=== PATIENT | male | born 1940 | race Caucasian/White ===

== ENCOUNTER 2022-04-05 07:43 | Emergency (ER) | payer MEDICARE ==
[2022-04-05] MEDS ORDERED: Ibuprofen 600 MG TAB ONE (08:20)
[2022-04-05 08:35] LABS: #Basophils 0.1 thou/uL (0.0-0.2); #Eosinphils 0.2 thou/uL (0.0-0.7); #Lymphocytes 1.4 thou/uL (1.20-3.40); #Neutrophils 7.6 thou/uL (1.40-6.50); %Basophils 0.9 % (0.0-1.0); %Eosinophils 1.7 % (0.0-10.0); %Lymphocytes 13.6 % (21.0-51.0); %Monocytes 9.5 % (0.0-10.0); %Neutrophils 74.3 % (42.0-75.0); Hemoglobin 12.9 g/dL (14.0-18.0); Mean Corpuscular HGB CONC 32.9 g/dL (32.0-36.0); Mean Corpuscular Hemoglobin 31.5 pg (27.0-31.0); Mean Corpuscular Volume 95.9 fl (78.0-98.0); Mean Platelet Volume 6.9 fL (7.4-10.4); Platelet Count 240 10x3/uL (130-400); RBC Distribution Width 11.8 % (11.5-14.5); Red Blood Cell (RBC) Count 4.11 mill/uL (4.70-6.10); White Blood Cell (WBC) Count 10.3 10x3/uL (4.8-10.8)
[2022-04-05 08:51] LABS: Anion Gap 15 mmol/L (10-20); BUN (Urea Nitrogen) 16 mg/dL (8.4-25.7); CRP (Inflammatory) 1.48 mg/dL (= or < 0.5); Calc. Creatinine Clearance 0 mL/min (70-130); Calcium 9.2 mg/dL (7.8-10.44); Carbon Dioxide 23 mmol/L (23-31); Chloride 107 mmol/L (98-107); Estimated GFR 85; Glucose 95 mg/dL (83-110); Potassium 4.7 mmol/L (3.5-5.1); Sodium 140 mmol/L (136-145)
[2022-04-05] MEDS ORDERED: Albuterol Sulfate 2.5 mg/3 ml Neb ONE (12:39)
== END 2022-04-05 09:30 | disposition home or self-care (01) ==
LOC: MADERS 07:43
DX: S90.02XA Contusion of left ankle, initial encounter (principal); L03.116 Cellulitis of left lower limb; B35.1 Tinea unguium; I10 Essential (primary) hypertension; Z79.899 Other long term (current) drug therapy; G40.909 Epilepsy, unspecified, not intractable, without status epilepticus; X58.XXXA Exposure to other specified factors, initial encounter
CPT/HCPCS: 80048; 85025; 86140; J7611

== ENCOUNTER 2022-04-11 09:04 | Inpatient (IN) | payer MEDICARE ==
[2022-04-11] MEDS ORDERED: Sodium Chloride 0.9% 250 ML 250 ML ONE (09:53)
[2022-04-11 10:38] LABS: #Basophils 0.1 thou/uL (0.0-0.2); #Eosinphils 0.1 thou/uL (0.0-0.7); #Lymphocytes 1.9 thou/uL (1.20-3.40); #Monocytes 1.1 thou/uL (0.11-0.59); #Neutrophils 8.2 thou/uL (1.40-6.50); %Basophils 1.2 % (0.0-1.0); %Eosinophils 0.9 % (0.0-10.0); %Lymphocytes 16.4 % (21.0-51.0); %Monocytes 9.8 % (0.0-10.0); %Neutrophils 71.7 % (42.0-75.0); Hemoglobin 13.1 g/dL (14.0-18.0); Mean Corpuscular HGB CONC 32.9 g/dL (32.0-36.0); Mean Corpuscular Hemoglobin 31.1 pg (27.0-31.0); Mean Corpuscular Volume 94.5 fl (78.0-98.0); Mean Platelet Volume 7.9 fL (7.4-10.4); Platelet Count 307 10x3/uL (130-400); RBC Distribution Width 11.4 % (11.5-14.5); Red Blood Cell (RBC) Count 4.22 mill/uL (4.70-6.10); White Blood Cell (WBC) Count 11.5 10x3/uL (4.8-10.8)
[2022-04-11 10:53] LABS: Anion Gap 15 mmol/L (10-20); BUN (Urea Nitrogen) 28 mg/dL (8.4-25.7); Calc. Creatinine Clearance 0 mL/min (70-130); Calcium 9.3 mg/dL (7.8-10.44); Carbon Dioxide 22 mmol/L (23-31); Chloride 105 mmol/L (98-107); Estimated GFR 63; Glucose 87 mg/dL (83-110); Sodium 138 mmol/L (136-145)
[2022-04-11] MEDS ORDERED: Sodium Chloride 0.9% 1,000 ML ONE (12:08)
[2022-04-11 13:33] VITALS: BMI 21.2
[2022-04-11] MEDS ORDERED: Ondansetron PF 4 MG/2 ML Vial IVP PRN (16:15)
[2022-04-11] MEDS ORDERED: Ondansetron ODT 4 MG TAB PO PRN (16:15)
[2022-04-11] MEDS: Enoxaparin Sodium 40 MG/0.4 ML SYRINGE SC SCH (20:18)
[2022-04-11] MEDS: levETIRAcetam 500 MG TAB PO SCH (20:19)
[2022-04-12] MEDS: Acetaminophen 325 MG TAB PO PRN ×2 (00:35→14:31)
[2022-04-12 02:00] LABS: SARS-CoV-2 NAA Rapid Test Not Detected (NotDetected)
[2022-04-12 07:42] LABS: #Basophils 0.2 thou/uL (0.0-0.2); #Eosinphils 0.2 thou/uL (0.0-0.7); #Lymphocytes 1.9 thou/uL (1.20-3.40); #Neutrophils 6.7 thou/uL (1.40-6.50); %Basophils 1.9 % (0.0-1.0); %Eosinophils 1.8 % (0.0-10.0); %Lymphocytes 18.8 % (21.0-51.0); %Monocytes 9.9 % (0.0-10.0); %Neutrophils 67.6 % (42.0-75.0); Hemoglobin 11.5 g/dL (14.0-18.0); Mean Corpuscular HGB CONC 33.9 g/dL (32.0-36.0); Mean Corpuscular Hemoglobin 31.8 pg (27.0-31.0); Mean Corpuscular Volume 93.6 fl (78.0-98.0); Mean Platelet Volume 6.3 fL (7.4-10.4); Platelet Count 245 10x3/uL (130-400); RBC Distribution Width 11.3 % (11.5-14.5); Red Blood Cell (RBC) Count 3.62 mill/uL (4.70-6.10); White Blood Cell (WBC) Count 9.9 10x3/uL (4.8-10.8)
[2022-04-12 07:47] LABS: Anion Gap 10 mmol/L (10-20); BUN (Urea Nitrogen) 20 mg/dL (8.4-25.7); Calc. Creatinine Clearance 47 mL/min (70-130); Calcium 8.7 mg/dL (7.8-10.44); Carbon Dioxide 22 mmol/L (23-31); Chloride 107 mmol/L (98-107); Estimated GFR 77; Glucose 97 mg/dL (83-110); Potassium 3.9 mmol/L (3.5-5.1); Sodium 135 mmol/L (136-145)
[2022-04-12] MEDS: levETIRAcetam 500 MG TAB PO SCH ×2 (08:06→21:18)
[2022-04-12] MEDS: Bisoprolol Fumarate 5 MG TAB PO SCH (08:06)
[2022-04-12] MEDS: Finasteride 5 MG TAB PO SCH (08:07)
[2022-04-12] MEDS: Hydrochlorothiazide 25 MG TAB PO SCH (08:07)
[2022-04-12] MEDS ORDERED: FLU VACC QS2022-23(65YR UP)/PF 240 MCG/0.7 ML SYRINGE IM ONE (09:00)
[2022-04-12] MEDS: Vancomycin HCl 1 GM in Sodium Chloride 0.9% 250 ML 250 ML IVPB SCH (09:53)
[2022-04-12] MEDS: Enoxaparin Sodium 40 MG/0.4 ML SYRINGE SC SCH (21:18)
[2022-04-13] MEDS: Acetaminophen 325 MG TAB PO PRN (02:27)
[2022-04-13] MEDS: Bisoprolol Fumarate 5 MG TAB PO SCH (08:10)
[2022-04-13] MEDS: levETIRAcetam 500 MG TAB PO SCH ×2 (08:11→21:14)
[2022-04-13] MEDS: Hydrochlorothiazide 25 MG TAB PO SCH (08:11)
[2022-04-13] MEDS: Finasteride 5 MG TAB PO SCH (08:11)
[2022-04-13 09:23] LABS: Vancomycin, Trough 5.6 ug/mL
[2022-04-13] MEDS: Vancomycin HCl 750 MG in Sodium Chloride 0.9% 250 ML 250 ML IVPB SCH ×3 (10:19→21:58)
[2022-04-13] MEDS: Vancomycin HCl 1 GM in Sodium Chloride 0.9% 250 ML 250 ML IVPB SCH (12:05)
[2022-04-13] MEDS ORDERED: Vancomycin HCl 500 MG in Sodium Chloride 0.9% 100 ML IVPB SCH (14:00)
[2022-04-13] MEDS: Enoxaparin Sodium 40 MG/0.4 ML SYRINGE SC SCH (21:15)
[2022-04-14] MEDS: Finasteride 5 MG TAB PO SCH (08:27)
[2022-04-14] MEDS: levETIRAcetam 500 MG TAB PO SCH ×2 (08:27→20:30)
[2022-04-14] MEDS: Hydrochlorothiazide 25 MG TAB PO SCH (08:28)
[2022-04-14] MEDS: Vancomycin HCl 750 MG in Sodium Chloride 0.9% 250 ML 250 ML IVPB SCH ×2 (09:19→21:11)
[2022-04-14] MEDS: Enoxaparin Sodium 40 MG/0.4 ML SYRINGE SC SCH (20:33)
[2022-04-14 21:22] LABS: Vancomycin, Trough 11.8 ug/mL
[2022-04-15] MEDS: Acetaminophen 325 MG TAB PO PRN (04:30)
[2022-04-15 07:11] VITALS: BP 99/62; TEMP 98.1
[2022-04-15] MEDS: levETIRAcetam 500 MG TAB PO SCH (08:39)
[2022-04-15] MEDS: Hydrochlorothiazide 25 MG TAB PO SCH (08:40)
[2022-04-15] MEDS: Finasteride 5 MG TAB PO SCH (08:42)
[2022-04-15] MEDS: Vancomycin HCl 750 MG in Sodium Chloride 0.9% 250 ML 250 ML IVPB SCH (09:59)
== END 2022-04-15 10:43 | disposition swing bed (61) | DRG 603 ==
LOC: MADERS 09:04 → MADMS 11:51
PROVIDERS: ADMIT Family Medicine; ATTEND Family Medicine
DX: L03.116 Cellulitis of left lower limb (principal); L02.416 Cutaneous abscess of left lower limb; N40.0 Benign prostatic hyperplasia without lower urinary tract symptoms; I10 Essential (primary) hypertension; G40.909 Epilepsy, unspecified, not intractable, without status epilepticus; D64.9 Anemia, unspecified; D72.829 Elevated white blood cell count, unspecified; Z20.822 Contact with and (suspected) exposure to COVID-19; I95.2 Hypotension due to drugs; R53.1 Weakness; Z98.890 Other specified postprocedural states; Z79.899 Other long term (current) drug therapy; Z98.49 Cataract extraction status, unspecified eye; Z86.69 Personal history of other diseases of the nervous system and sense organs
CPT/HCPCS: 36415; 80048; 80202; 83605; 85025; 86140; 87040; 87070; 87077; 87186; 87205; 96365; J1650; J3370; J3490; J7050; U0002

== ENCOUNTER 2022-04-15 10:51 | Inpatient (IN) | payer MEDICARE ==
[2022-04-15 11:25] VITALS: BMI 21.2
[2022-04-15] MEDS ORDERED: Ondansetron PF 4 MG/2 ML Vial IVP PRN (13:55)
[2022-04-15] MEDS ORDERED: Ondansetron ODT 4 MG TAB PO PRN (13:57)
[2022-04-15 14:08] LABS: Vancomycin, Random 26.2 ug/mL (See Comment)
[2022-04-15] MEDS: levETIRAcetam 500 MG TAB PO SCH (20:45)
[2022-04-15] MEDS: Enoxaparin Sodium 30 MG/0.3 ML SYRINGE SC SCH (20:48)
[2022-04-15] MEDS: Vancomycin HCl 750 MG in Sodium Chloride 0.9% 250 ML 250 ML IVPB SCH (20:54)
[2022-04-16] MEDS: Acetaminophen ER (8hr) 650 MG TAB PO PRN ×2 (02:19→23:43)
[2022-04-16 05:19] LABS: #Basophils 0.1 thou/uL (0.0-0.2); #Eosinphils 0.4 thou/uL (0.0-0.7); #Lymphocytes 1.8 thou/uL (1.20-3.40); #Monocytes 0.5 thou/uL (0.11-0.59); #Neutrophils 5.1 thou/uL (1.40-6.50); %Basophils 1.2 % (0.0-1.0); %Eosinophils 5.2 % (0.0-10.0); %Lymphocytes 22.6 % (21.0-51.0); %Monocytes 6.1 % (0.0-10.0); %Neutrophils 64.9 % (42.0-75.0); Hemoglobin 11.8 g/dL (14.0-18.0); Mean Corpuscular HGB CONC 33.7 g/dL (32.0-36.0); Mean Corpuscular Hemoglobin 31.6 pg (27.0-31.0); Mean Corpuscular Volume 93.6 fl (78.0-98.0); Mean Platelet Volume 6.2 fL (7.4-10.4); Platelet Count 321 10x3/uL (130-400); RBC Distribution Width 11.1 % (11.5-14.5); Red Blood Cell (RBC) Count 3.73 mill/uL (4.70-6.10); White Blood Cell (WBC) Count 7.9 10x3/uL (4.8-10.8)
[2022-04-16 05:38] LABS: Anion Gap 14 mmol/L (10-20); BUN (Urea Nitrogen) 26 mg/dL (8.4-25.7); Calc. Creatinine Clearance 52 mL/min (70-130); Carbon Dioxide 23 mmol/L (23-31); Chloride 107 mmol/L (98-107); Estimated GFR 87; Glucose 91 mg/dL (83-110); Potassium 4.4 mmol/L (3.5-5.1); Sodium 140 mmol/L (136-145)
[2022-04-16] MEDS: levETIRAcetam 500 MG TAB PO SCH ×2 (08:46→20:52)
[2022-04-16] MEDS ORDERED: Enoxaparin Sodium 40 MG/0.4 ML SYRINGE SC SCH (09:00)
[2022-04-16] MEDS ORDERED: Hydrochlorothiazide 25 MG TAB PO SCH (09:00)
[2022-04-16] MEDS ORDERED: Bisoprolol Fumarate 5 MG TAB PO SCH (09:00)
[2022-04-16 09:20] LABS: Vancomycin, Trough 18.2 ug/mL
[2022-04-16] MEDS: Vancomycin HCl 750 MG in Sodium Chloride 0.9% 250 ML 250 ML IVPB SCH (10:12)
[2022-04-16] MEDS ORDERED: Saccharomyces boulardii 250 MG CAP PO SCH (17:35)
[2022-04-16] MEDS: Clindamycin 150 MG CAP PO SCH (18:06)
[2022-04-16] MEDS: Enoxaparin Sodium 30 MG/0.3 ML SYRINGE SC SCH (20:52)
[2022-04-17] MEDS: Clindamycin 150 MG CAP PO SCH ×2 (02:58→10:15)
[2022-04-17 08:18] VITALS: BP 111/71; TEMP 97.9
[2022-04-17] MEDS: levETIRAcetam 500 MG TAB PO SCH (08:49)
[2022-04-17] MEDS ORDERED: Saccharomyces boulardii 250 MG CAP PO SCH (09:00)
[2022-04-17] MEDS ORDERED: Triple Antibiotic Oint 1 GM Packet TOP SCH ×2 (11:00→15:00)
== END 2022-04-17 12:30 | disposition home or self-care (01) | DRG 603 ==
LOC: MADMS 10:51
PROVIDERS: ADMIT Family Medicine; ATTEND Family Medicine
DX: L03.116 Cellulitis of left lower limb (principal); Z16.29 Resistance to other single specified antibiotic; L02.416 Cutaneous abscess of left lower limb; D64.9 Anemia, unspecified; I10 Essential (primary) hypertension; N40.0 Benign prostatic hyperplasia without lower urinary tract symptoms; G40.909 Epilepsy, unspecified, not intractable, without status epilepticus; R53.81 Other malaise; Z86.69 Personal history of other diseases of the nervous system and sense organs; Z98.890 Other specified postprocedural states; Z79.899 Other long term (current) drug therapy; Z20.822 Contact with and (suspected) exposure to COVID-19
CPT/HCPCS: 36415; 80048; 80202; 82565; 85025; 87811; J1650; J3370; J7050

== ENCOUNTER 2022-05-05 09:21 | Emergency (ER) | payer MEDICARE ==
[2022-05-05] MEDS ORDERED: Boostrix 0.5 ML (Tdap) VIAL (>/=7 yrs of age) ONE (10:19)
== END 2022-05-05 11:58 | disposition short-term general hospital (02) ==
LOC: MADERS 09:21
DX: R60.0 Localized edema (principal); I10 Essential (primary) hypertension; G40.909 Epilepsy, unspecified, not intractable, without status epilepticus; Z79.899 Other long term (current) drug therapy; Z23 Encounter for immunization
CPT/HCPCS: 90471; 90715

== ENCOUNTER 2023-09-30 19:52 | Emergency (ER) | payer MEDICARE ==
[2023-09-30] MEDS ORDERED: Morphine 2 MG/ML VIAL ONE (20:22)
[2023-09-30 21:42] LABS: Eosinophils 2 % (0-10); Hematocrit 39.1 % (42.0-52.0); Hemoglobin 12.2 g/dL (14.0-18.0); Lymphocytes 7 % (21-51); MDiff Complete? YES; Mean Corpuscular HGB CONC 31.3 g/dL (32.0-36.0); Mean Corpuscular Hemoglobin 30.8 pg (27.0-31.0); Mean Corpuscular Volume 98.4 fl (78.0-98.0); Mean Platelet Volume 5.8 fL (7.4-10.4); Monocytes 5 % (0-10); Neutrophil 86 % (42-75); Platelet Count 201 10x3/uL (130-400); RBC Distribution Width 12.2 % (11.5-14.5); Red Blood Cell (RBC) Count 3.97 mill/uL (4.70-6.10); White Blood Cell (WBC) Count 12.6 10x3/uL (4.8-10.8)
[2023-09-30 21:49] LABS: INR-International Normal Ratio 1.1; Prothrombin Time 13.9 sec (12.0-14.7)
[2023-09-30 21:52] LABS: PTT 21.8 sec (22.9-36.1)
[2023-09-30 21:59] LABS: ALT (SGPT) 18 U/L (8-55); AST (SGOT) 19 U/L (5-34); Albumin 3.8 g/dL (3.4-4.8); Alkaline Phosphatase 84 U/L (40-110); Anion Gap 18 mmol/L (10-20); BUN (Urea Nitrogen) 17 mg/dL (8.4-25.7); Bilirubin, Total 0.8 mg/dL (0.2-1.2); Calc. Creatinine Clearance 0 mL/min (70-130); Carbon Dioxide 20 mmol/L (23-31); Chloride 110 mmol/L (98-107); Estimated GFR 68; Globulin 2.4 g/dL (2.4-3.5); Glucose 120 mg/dL (83-110); Potassium 3.5 mmol/L (3.5-5.1); Protein, Total 6.2 g/dL (5.8-8.1); Sodium 144 mmol/L (136-145)
== END 2023-10-01 00:05 | disposition short-term general hospital (02) ==
LOC: MADERS 19:52
DX: S72.032A Displaced midcervical fracture of left femur, initial encounter for closed fracture (principal); I10 Essential (primary) hypertension; J44.9 Chronic obstructive pulmonary disease, unspecified; I63.9 Cerebral infarction, unspecified; M43.22 Fusion of spine, cervical region; G40.909 Epilepsy, unspecified, not intractable, without status epilepticus; F17.290 Nicotine dependence, other tobacco product, uncomplicated; F17.210 Nicotine dependence, cigarettes, uncomplicated; W01.0XXA Fall on same level from slipping, tripping and stumbling without subsequent striking against object, initial encounter; Z79.899 Other long term (current) drug therapy
CPT/HCPCS: 36415; 80053; 85025; 85610; 85730; 93005; 96374; J2272

== ENCOUNTER 2023-11-07 10:16 | Emergency (ER) | payer MEDICARE ==
[~2023-11-07 10:16] MED LIST: Iopamidol 370 76% 100 ML VIAL ONE
[2023-11-07 11:22] LABS: #Basophils 0.1 thou/uL (0.0-0.2); #Eosinphils 0.7 thou/uL (0.0-0.7); #Lymphocytes 1.7 thou/uL (1.20-3.40); #Monocytes 0.5 thou/uL (0.11-0.59); #Neutrophils 5.4 thou/uL (1.40-6.50); %Basophils 0.8 % (0.0-1.0); %Eosinophils 8.4 % (0.0-10.0); %Lymphocytes 20.2 % (21.0-51.0); %Monocytes 6.1 % (0.0-10.0); %Neutrophils 64.5 % (42.0-75.0); Hematocrit 40.6 % (42.0-52.0); Hemoglobin 12.2 g/dL (14.0-18.0); Mean Corpuscular HGB CONC 30.2 g/dL (32.0-36.0); Mean Corpuscular Hemoglobin 29.6 pg (27.0-31.0); Mean Corpuscular Volume 98.2 fl (78.0-98.0); Mean Platelet Volume 5.6 fL (7.4-10.4); Platelet Count 275 10x3/uL (130-400); RBC Distribution Width 12.3 % (11.5-14.5); Red Blood Cell (RBC) Count 4.13 mill/uL (4.70-6.10); White Blood Cell (WBC) Count 8.4 10x3/uL (4.8-10.8)
[2023-11-07 11:27] LABS: Prothrombin Time 13.4 sec (12.0-14.7)
[2023-11-07 11:28] LABS: PTT 24.5 sec (22.9-36.1)
[2023-11-07 11:34] LABS: ALT (SGPT) 8 U/L (8-55); AST (SGOT) 13 U/L (5-34); Alkaline Phosphatase 127 U/L (40-110); Anion Gap 12 mmol/L (10-20); BUN (Urea Nitrogen) 17 mg/dL (8.4-25.7); Bilirubin, Total 0.5 mg/dL (0.2-1.2); Calc. Creatinine Clearance 0 mL/min (70-130); Calcium 9.2 mg/dL (7.8-10.44); Carbon Dioxide 25 mmol/L (23-31); Chloride 108 mmol/L (98-107); Estimated GFR 86; Glucose 84 mg/dL (83-110); Potassium 4.1 mmol/L (3.5-5.1); Sodium 141 mmol/L (136-145)
[2023-11-07] MEDS ORDERED: cefTRIAXone (ROCEPHIN) 1 GM VIAL ONE (12:24)
[2023-11-07] MEDS ORDERED: Sodium Chloride 0.9% 100 ML ONE (12:24)
== END 2023-11-07 13:10 | disposition home or self-care (01) ==
LOC: MADERS 10:16
DX: L03.116 Cellulitis of left lower limb (principal); T81.49XA Infection following a procedure, other surgical site, initial encounter; F17.290 Nicotine dependence, other tobacco product, uncomplicated; I10 Essential (primary) hypertension; G40.909 Epilepsy, unspecified, not intractable, without status epilepticus; Z79.899 Other long term (current) drug therapy
CPT/HCPCS: 72193; 80053; 83605; 85025; 85610; 85730; 86140; 87040; 87070; 87077; 87186; 87205; 96374; 99284; J0696; J3490; Q9967